=== PATIENT | male | born 1970 | race Asian ===

== ENCOUNTER 2017-10-19 12:17 | Outpatient (CLI) | payer BC ==
[2017-10-19 13:42] LABS: #Eosinphils 0.1 thou/uL (0.0-0.7); #Monocytes 0.5 thou/uL (0.11-0.59); %Basophils 0.4 % (0.0-1.0); %Eosinophils 1.6 % (0.0-10.0); %Lymphocytes 30.4 % (21.0-51.0); %Monocytes 7.9 % (0.0-10.0); %Neutrophils 59.8 % (42.0-75.0); Hemoglobin 8.5 g/dL (14.0-18.0); Mean Corpuscular HGB CONC 32.5 g/dL (32.0-36.0); Mean Corpuscular Hemoglobin 26.1 pg (27.0-31.0); Mean Corpuscular Volume 80.2 fl (80.0-94.0); Mean Platelet Volume 11.1 fL (7.4-10.4); Platelet Count 204 thou/uL (130-400); RBC Distribution Width 14.2 % (11.5-14.5); Red Blood Cell (RBC) Count 3.26 mill/uL (4.70-6.10); White Blood Cell (WBC) Count 6.7 thou/uL (4.8-10.8)
[2017-10-19 14:04] LABS: Anion Gap 13 mmol/L (10-20); BUN (Urea Nitrogen) 10 mg/dL (8.9-20.6); Calc. Creatinine Clearance 0 mL/min (70-130); Calcium 9.2 mg/dL (7.8-10.44); Carbon Dioxide 25 mmol/L (22-29); Chloride 105 mmol/L (98-107); Estimated GFR-MDRD 54; Glucose 83 mg/dL (70-105); Potassium 3.8 mmol/L (3.5-5.1); Sodium 139 mmol/L (136-145)
--- NOTE | 2017-10-19 22:17 | EKG ---
Test Reason : Blood Pressure : / mmHG Vent. Rate : 048 BPM Atrial Rate : 048 BPM P-R Int : 174 ms QRS Dur : 094 ms QT Int : 470 ms P-R-T Axes : 051 -39 008 degrees QTc Int : 419 ms Marked sinus bradycardia Left axis deviation Pulmonary disease pattern Nonspecific ST abnormality Abnormal ECG When compared with ECG of 28-JAN-2013 10:19, No significant change was found Confirmed by ABDIFATAH WOOD, . SJenniffer ([id number]) on 10/19/2017 10:17:38 PM Referred By: ADWOA Confirmed By:DR. Rufus GARDINER MD
== END 2017-10-19 12:18 | disposition home or self-care (01) ==
LOC: LABBT 12:17
PROVIDERS: ATTEND Surgery
DX: Z01.812 Encounter for preprocedural laboratory examination (principal); K64.8 Other hemorrhoids
CPT/HCPCS: 80048; 85025; 93005; 93010

== ENCOUNTER 2017-10-30 09:29 | Day surgery (SDC) | payer BC ==
[2017-10-19 12:25] VITALS: BMI 31.8
[2017-10-30] MEDS ORDERED: cefOXitin 2 GM VIAL ONE (09:48)
[2017-10-30] MEDS ORDERED: Sodium Chloride 0.9% 100 ML ONE (09:49)
[2017-10-30] MEDS ORDERED: Lidocaine 2% 10 ML INJ ONE (10:23)
[2017-10-30] MEDS ORDERED: Bupivacaine/Epinephrine 0.25% 30 ML VIAL ONE (10:23)
[2017-10-30] MEDS ORDERED: Lidocaine 2% Jelly 5 ML TUBE ONE (10:23)
[2017-10-30] MEDS ORDERED: Fentanyl 100 MCG/2 ML VIAL ONE ×2 (10:40→11:54)
[2017-10-30] MEDS ORDERED: Ondansetron HCl/PF 4 MG/2 ML Vial ONE ×2 (10:40→15:40)
--- NOTE | 2017-10-30 11:46 | OP ---
DATE OF PROCEDURE: 10/30/2017 PREOPERATIVE DIAGNOSES: Internal prolapsing bleeding hemorrhoids. POSTOPERATIVE DIAGNOSES: Internal prolapsing bleeding hemorrhoids. PROCEDURE: PPH stapled hemorrhoidectomy. SURGEON: Dr. Marco Antonio Marie ANESTHESIA: General. ESTIMATED BLOOD LOSS: Minimal. COMPLICATIONS: None. SPECIMEN: Hemorrhoids. TECHNIQUE: The patient was taken to the operating room, placed supine on the table. After general a nesthetic was obtained, he was placed in prone position. His buttock crease was taped open. The per ianal area is prepped and draped in a sterile fashion. Anal finger exam revealed no obvious anal can al mass. Good sphincter tone. The obturator and sphincter protecting device is placed and sewn to th e perianal skin using silk suture. This fully protected the sphincter complex. The suture assist wa s used to place a pursestring 2 cm above the dentate line. The stapler was opened to its fullest ext ent. The pursestring is tied down and the stitches brought through the staple. The stapler is tight ened down in the green zone and fired. A few staple line bleeders were oversewn using Vicryl. The i nternal hemorrhoids are gone. The patient was en route to recovery in stable condition. All sponge counts, needle counts, lap counts were correct. Gelfoam was placed in the anal.
[2017-10-30] MEDS ORDERED: ePHEDrine/0.9% NaCl/PF SYRINGE 50 mg/10 ml ONE (15:40)
[2017-10-30] MEDS ORDERED: PROPOFOL 200 MG/20 ML VIAL ONE (15:40)
[2017-10-30] MEDS ORDERED: Lidocaine 1% PF 5 ML VIAL ONE (15:40)
[2017-10-30] MEDS ORDERED: Glycopyrrolate 0.2 MG/ML 5 ML SYRINGE ONE (15:40)
== END 2017-10-30 13:56 | disposition home or self-care (01) ==
LOC: SDC 09:29
PROVIDERS: ATTEND Surgery
PROC: 06LY0ZC Occlusion of Hemorrhoidal Plexus, Open Approach (ICD-10-PCS; principal; 2017-10-30)
DX: K64.8 Other hemorrhoids (principal); G47.33 Obstructive sleep apnea (adult) (pediatric); I12.9 Hypertensive chronic kidney disease with stage 1 through stage 4 chronic kidney disease, or unspecified chronic kidney disease; E78.00 Pure hypercholesterolemia, unspecified; N18.9 Chronic kidney disease, unspecified; Z79.899 Other long term (current) drug therapy
CPT/HCPCS: 96374; J0694; J2405; J3010; J7050

== ENCOUNTER → 2017-10-30 | Day surgery (SDC) | payer BC | LOC: SCSER/OP 17:53 | PROVIDERS: ATTEND Surgery | DX: R33.9 Retention of urine, unspecified (principal); E78.5 Hyperlipidemia, unspecified; I10 Essential (primary) hypertension; F32.9 Major depressive disorder, single episode, unspecified; F17.200 Nicotine dependence, unspecified, uncomplicated; Z79.82 Long term (current) use of aspirin; Z79.899 Other long term (current) drug therapy | CPT/HCPCS: 88304; 96374; J0694; J2001; J2405; J2704; J3010; J7050 ==

== ENCOUNTER 2022-09-14 09:38 | Outpatient (CLI) | payer OTHER | END 2022-09-14 09:39 | disposition home or self-care (01) | LOC: ULT 09:38 | PROVIDERS: ATTEND Family Medicine | DX: R10.13 Epigastric pain (principal); K76.0 Fatty (change of) liver, not elsewhere classified | CPT/HCPCS: 76700 ==